=== PATIENT | female | born 1935 | race Caucasian/White ===

== ENCOUNTER 2019-02-08 14:47 | Emergency (ER) | payer MEDICARE, BC ==
[~2019-02-08] VITALS: Ht 172.7 cm; Wt 68.2 kg
[~2019-02-08 14:47] MED LIST: AMLO5TAB PO; CITA20TA2 PO; HYDR25TA4 PO; METF500T PO; SIMV20TA PO; SOLI5TAB2 PO; TRAZ-251 PO; VALS160T30 PO; WARF1TAB PO
[2019-02-08] MEDS ORDERED: acetaminophen 325mg tablet PO ONE ×2 (16:50→22:20)
[2019-02-08] MEDS ORDERED: ondansetron 4mg rapidly disintigrating tab PO ONE (17:55)
[2019-02-08] MEDS ORDERED: ibuprofen tablet 400 MG TABLET PO ONE (18:00)
[2019-02-08 18:03] LABS: ALBUMIN 3.7 G/DL (3.4-5.0); ANION GAP 8 (8-16); BASOPHILS % (AUTO) 0.4 % (0-1); BLOOD UREA NITROGEN 29 MG/DL (7-18); BUN/CREATININE RATIO 23.6 (6.6-38.0); CALCIUM 10.4 MG/DL (8.5-10.1); CHLORIDE 94 MMOL/L (99-107); CREATININE 1.23 MG/DL (0.40-0.90); EOSINOPHILS % (AUTO) 0.3 % (0-6); GLUCOSE 123 MG/DL (70-104); HEMATOCRIT 34.5 % (35.0-45.0); HEMOGLOBIN 11.6 g/dl (12.0-16.0); LYMPHOCYTES # (AUTO) 0.7 X10'3 (1.1-4.8); LYMPHOCYTES % (AUTO) 7.9 % (21-51); MEAN CORPUSCULAR HEMOGLOBIN 31.3 PG (27.0-31.0); MEAN CORPUSCULAR HGB CONC 33.7 g/dL (33.0-36.5); MONOCYTES % (AUTO) 11.1 % (2-12); NEUTROPHILS # (AUTO) 7.3 X10'3 (1.8-7.7); NEUTROPHILS % (AUTO) 80.3 % (42-75); PLATELET COUNT 231 X10'3 (140-440); POTASSIUM 4.7 MMOL/L (3.5-5.1); RED BLOOD COUNT 3.71 X10'6 (4.20-5.60); RED CELL DISTRIBUTION WIDTH 15.3 % (11.5-14.5); SODIUM 127 MMOL/L (135-145); TOTAL CARBON DIOXIDE 24.6 MMOL/L (24-32); WHITE BLOOD COUNT 9.1 X10'3 (4.5-11.0); eGFR 41 ML/MIN
[2019-02-08] MEDS ORDERED: normal saline 1000ML IV soln IVB ONE (18:15)
--- NOTE | 2019-02-08 22:05 | NUR ---
pt with stable vs. reports her pain to the back of the neck "below the hairline" is reachign 9 out of 10. She remains in ccollar.
[2019-02-08] MEDS ORDERED: Melatonin 3mg tablet PO SCH (22:20)
[2019-02-08] MEDS ORDERED: oxybutynin 5mg tablet PO SCH (22:20)
[2019-02-08] MEDS ORDERED: hyDRALAzine 10mg tablet PO SCH (22:20)
[2019-02-08] MEDS ORDERED: sennosides/docusate sodium tablet PO SCH (22:20)
[2019-02-08] MEDS ORDERED: famotidine 10mg tablet PO ONE (23:05)
[2019-02-09] MEDS ORDERED: acetaminophen 325mg tablet PO PRN
[2019-02-09 05:00] LABS: CLARITY,URINE CLOUDY (Clear); COLOR,URINE YELLOW (Yellow); GLUCOSE, URINE NEGATIVE (Neg); KETONES,URINE NEGATIVE (Neg); LEUKOCYTE ESTERASE ,URINE MODERATE (Neg); NITRITES, URINE NEGATIVE (Neg); OCCULT BLOOD,URINE NEGATIVE (Neg); PROTEIN,URINE NEGATIVE (Neg); UA COLLECTION TYPE CLN CATCH MIDSTREAM; UROBILINOGEN,URINE 0.2 E.U/dL (0.2-1.0)
[2019-02-09 05:08] LABS: BACTERIA,URINE 4+ /HPF (Neg); RBC,URINE NONE SEEN /HPF (0-2); WBC,URINE TNTC /HPF (0-4)
[2019-02-09 05:10] LABS: MUCUS STRANDS FEW /LPF (Neg); SQUAMOUS EPITHELIAL CELL,UR MODERATE /LPF (FEW)
--- NOTE | 2019-02-09 07:10 | NUR ---
[facility] CALLED, STILL WAITING ON 911 LEVELS. NO TRANSPORT ETA AT THIS TIME.
[2019-02-09 07:40] VITALS: BP 136/64
--- NOTE | 2019-02-09 07:41 | NUR ---
PT LYING IN HOSPITAL BED WITH C-COLLAR IN PLACE, PT STATES SLIGHT PAIN TO LEFT SIDE OF HEAD BUT TOLERABLE, PT ORIENTED TO ROOM AND CALL LIGHT, PT UPDATED TO PLAN OF WAITING FOR TRANSPORT VIA EMS TO [place], PT AGREEABLE TO PLAN.
[2019-02-09] MEDS ORDERED: amLODIPine 5mg tablet PO ONE (08:00)
[2019-02-09] MEDS ORDERED: metoprolol succinate 25mg (24-HOUR) SR. Tablet PO SCH (08:00)
[2019-02-09] MEDS ORDERED: metFORMIN 500mg tablet PO SCH (08:00)
[2019-02-09] MEDS ORDERED: losartan 50mg tablet PO SCH (08:00)
[2019-02-09] MEDS ORDERED: CITALOpram 10mg tablet PO SCH (08:00)
[2019-02-09] MEDS ORDERED: famotidine 20mg tablet PO SCH (08:00)
[2019-02-09] MEDS ORDERED: fludrocortisone acetate 0.1mg tablet PO SCH (08:30)
== END 2019-02-09 08:21 | disposition short-term general hospital (02) ==
LOC: ER 14:48
DX: S12.001A Unspecified nondisplaced fracture of first cervical vertebra, initial encounter for closed fracture (principal); R11.2 Nausea with vomiting, unspecified; E78.00 Pure hypercholesterolemia, unspecified; I10 Essential (primary) hypertension; E11.9 Type 2 diabetes mellitus without complications; E87.1 Hypo-osmolality and hyponatremia; G43.909 Migraine, unspecified, not intractable, without status migrainosus; Z79.01 Long term (current) use of anticoagulants; Z86.718 Personal history of other venous thrombosis and embolism; Z79.899 Other long term (current) drug therapy; X58.XXXA Exposure to other specified factors, initial encounter; Y93.89 Activity, other specified; Y92.89 Other specified places as the place of occurrence of the external cause; Y99.9 Unspecified external cause status
CPT/HCPCS: 36415; 70450; 72125; 80048; 81001; 85025; 87077; 87088; 87186; 93005; 96360; 99285; J7030